=== PATIENT | female | born 1980 | race American Indian/Alaskan Native ===

== ENCOUNTER 2016-12-02 12:14 | Outpatient (CLI) | payer OTHER ==
--- NOTE | 2016-12-03 08:16 | Fluoroscopy Report ---
UPPER GI SERIES WITH AIR-CONTRAST AND SMALL BOWEL FOLLOW-THROUGH HISTORY: Abdominal pain. 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 27 fluoroscopic images were obtained. Deglutition is normal. No aspiration. The esophagus is normal caliber and mucosal pattern. No evidence for mass, stricture or hiatal hernia. Poor motility of the esophagus was suspected. The gastric cavity, duodenal bulb and duodenal sweep are within normal limits. No evidence for gastritis, mass or ulceration. Again, poor gastric motility was suspected. Transit time through the small bowel loops is mildly delayed at 2.5 hours. There is no evidence for abnormal dilatation, mass or narrowing. The terminal ileum is unremarkable. No cecal filling defect is appreciated. The appendix is not identified. IMPRESSION: No anatomic abnormality is appreciated. There did appear to be poor motility throughout this exam as outlined above.
== END 2016-12-02 12:15 | disposition home or self-care (01) ==
LOC: FLUORO 12:14
PROVIDERS: ATTEND Internal Medicine Gastroenterology
DX: R10.9 Unspecified abdominal pain (principal); R14.2 Eructation; J18.9 Pneumonia, unspecified organism; J45.909 Unspecified asthma, uncomplicated; Z79.899 Other long term (current) drug therapy
CPT/HCPCS: 74249